=== PATIENT | male | born 1980 | race Caucasian/White ===

== ENCOUNTER 2024-01-07 06:54 | Emergency (ER) | payer OTHER ==
[2024-01-07 07:10] VITALS: BP 127/80; PULSE 79; RESP 20; BMI 25.7
[2024-01-07] MEDS: KETOROLAC TROMETHAMINE 30 MG/1 ML VIAL IM ONE (07:53)
[2024-01-07] MEDS ORDERED: KETOROLAC TROMETHAMINE 30 MG/1 ML VIAL ONE (07:54)
== END 2024-01-07 11:04 | disposition home or self-care (01) ==
LOC: JER 06:54
PROC: 3E0233Z Introduction of Anti-inflammatory into Muscle, Percutaneous Approach (ICD-10-PCS; principal; 2024-01-07)
DX: M25.511 Pain in right shoulder (principal); M54.50 Low back pain, unspecified; V43.52XA Car driver injured in collision with other type car in traffic accident, initial encounter
CPT/HCPCS: 72131-TC; 73030-TC-RT-FY; 99284-25